=== PATIENT | male | born 1985 ===

== ENCOUNTER 2024-12-05 15:26 | Outpatient (CLI) | payer MEDICAID, SELFPAY ==
--- NOTE | 2024-12-05 10:00 | DI.RAD_ITS ---
Exam(s) XR ACROMIO CLAVICULAR JOINTS XR SHOULDER RT COMPLETE 2+V EXAM: XR SHOULDER RT COMPLETE 2+V CLINICAL HISTORY: shoulder pain, right, AC pain,m25.511. TECHNIQUE: 2D digital imaging was performed. Five views. COMPARISON: CR XR ACROMIO CLAVICULAR JOINTS from 12/05/2024 FINDINGS: BONES: No acute fracture is present. No bony destructive lesion is seen. JOINTS: No dislocation present. The acromioclavicular joints appear normal. The glenohumeral joint a ppears normal. SOFT TISSUE: Normal. IMPRESSION: Unremarkable radiographs of the right shoulder and acromioclavicular joints. DATA REPOSITORY: RADIATION DOSE DELIVERED:
== END 2024-12-05 15:46 ==
LOC: DI 15:26
PROVIDERS: Visit Provider Physician Assistant
DX: M25.511 Pain in right shoulder (principal)
CPT/HCPCS: 73030; 73050